=== PATIENT | female | born 1985 | race Caucasian/White ===

== ENCOUNTER 2016-12-21 19:59 | Emergency (ER) | payer OTHER ==
[2016-12-21 19:46] LABS: INFLUENZA A NEG (NEG); INFLUENZA B NEG (NEG)
[~2016-12-21 19:59] MED LIST: ANTIVERT PO; ATARAX PO; CELEXA20 MG PO; CORTISPORI10 ML OTIC AU; DECADRON PO; DEPAKOTE PO; FLAGYL; FLEXERIL10 MG PO; IBUPROFEN400 MG PO; MINIPRESS1 MG PO; NAPROXEN PO; NO MEDICATIONS; TYLENOL #3 PO; VOLTAREN75 MG PO; ZITHROMAX PO
== END 2016-12-21 20:02 | disposition home or self-care (01) ==
LOC: SED 19:59
PROVIDERS: Nurse Practitioner
DX: B34.9 Viral infection, unspecified (principal); F17.210 Nicotine dependence, cigarettes, uncomplicated; F41.9 Anxiety disorder, unspecified
CPT/HCPCS: 87804; 99282

== ENCOUNTER 2017-06-29 10:50 | Emergency (ER) | payer SELFPAY ==
[2017-06-29] MEDS ORDERED: AMOXICILLIN875 MG PO (11:35)
== END 2017-06-29 11:34 | disposition home or self-care (01) ==
LOC: SED 10:50
DX: J01.00 Acute maxillary sinusitis, unspecified (principal); J01.10 Acute frontal sinusitis, unspecified; J02.9 Acute pharyngitis, unspecified; F17.210 Nicotine dependence, cigarettes, uncomplicated; Z98.890 Other specified postprocedural states; Z88.1 Allergy status to other antibiotic agents; Z79.899 Other long term (current) drug therapy
CPT/HCPCS: 87651; 99282